=== PATIENT | female | born 1960 | race Hispanic/Latino ===

== ENCOUNTER 2022-10-25 07:41 | Observation (INO) | payer OTHER ==
[2022-10-21 12:39] VITALS: BP 141/75
[2022-10-21 12:49] LABS: BASOPHILS % (AUTO) 0.3 % (0.0-5.0); EOSINOPHILS % (AUTO) 1.4 % (0.0-8.0); HEMATOCRIT 37.3 % (36-48); LYMPHOCYTES % (AUTO) 27.6 % (21.0-51.0); MEAN CORPUSCULAR HEMOGLOBIN 30.6 pg (27.0-33.0); MEAN CORPUSCULAR HGB CONC 33.5 g/dL (32.0-36.0); MEAN CORPUSCULAR VOLUME 91.2 fL (79-99); MONOCYTES % (AUTO) 9.6 % (3.0-13.0); NEUTROPHILS % (AUTO) 60.9 % (40.0-77.0); PLATELET COUNT (AUTO) 282 K/uL (130-400); RED BLOOD CELL COUNT(AUTO) 4.09 MIL/uL (4.00-5.50); RED CELL DISTRIBUTION WIDTH 12.3 % (11.0-15.5); WHITE BLOOD COUNT (AUTO) 6.4 K/uL (4.8-10.8)
[2022-10-21 13:12] LABS: PROTHROMBIN TIME 10.9 SEC (9.6-11.6)
[2022-10-21 13:13] LABS: PARTIAL THROMBOPLASTIN TIME 28.9 SEC (26.3-35.5)
[~2022-10-25] VITALS: Ht 167.6 cm; Wt 76.7 kg
[2022-10-25] VITALS (24 sets, daily range): BP systolic 118–157; BP diastolic 62–78
[~2022-10-25 07:41] MED LIST: AEC81 PO; ALBU90AE2 IH; ATOR-2 PO; CETI10TA57 PO; DILT120C78 PO; FISH1CAP27 PO; FLUT16H NASAL; HYDR25TA PO; INVANZ 1GM+NS 50ML IVPB 50 ML IV SCH; LACTATED RINGERS 1000ML 1,000 ML IV SCH; LISI2.5T13 PO; METF-444 PO; MONT-39 PO; MVIT PO
[2022-10-25] MEDS ORDERED: 0.9%NACL 1000ML 1,000 ML IV ONE (09:03)
[2022-10-25] MEDS ORDERED: LIDOCAINE PF 100MG/5ML (2%) SYRINGE 5ML ONE (09:47)
[2022-10-25] MEDS ORDERED: PROPOFOL 10 MG/ML 20ML VIAL IV ONE (09:47)
[2022-10-25] MEDS ORDERED: ROCURONIUM 10MG/1ML SYR 10 MG/ML ML ONE (09:47)
[2022-10-25] MEDS ORDERED: GLYCOPYRROLATE 1 MG/5 ML SYRINGE ONE (09:47)
[2022-10-25] MEDS ORDERED: MIDAZOLAM HCL 1 MG/ML 2ML VIAL ONE (09:47)
[2022-10-25] MEDS ORDERED: FENTANYL CITRATE PF 50 MCG/1 ML 2ML VIAL ONE (09:47)
[2022-10-25] MEDS ORDERED: HYDROMORPHONE 1 MG INJ ONE ×2 (09:50→12:16)
[2022-10-25] MEDS ORDERED: FAMOTIDINE 20MG VIAL IV ONE (09:50)
[2022-10-25 09:53] LABS: ALBUMIN 4.1 g/dL (3.5-5.0); CREATININE 0.4 mg/dL (0.5-1.5); POTASSIUM 3.2 mmol/L (3.5-5.1); TOTAL PROTEIN, SERUM 6.9 g/dL (6.0-8.3)
[2022-10-25] MEDS ORDERED: LIDOCAINE 1%-EPI 1:100,000 20 ML VIAL IJ ONE ×2 (10:07→10:30)
[2022-10-25] MEDS ORDERED: BUPIVACAINE/PF 0.25% 30ML VIAL IJ ONE ×2 (10:08→10:30)
[2022-10-25] MEDS ORDERED: ONDANSETRON 4MG INJ ONE (11:22)
[2022-10-25] MEDS ORDERED: ONDANSETRON 4MG INJ IVP PRN ×2 (12:00→15:00)
[2022-10-25] MEDS ORDERED: INSULIN HUMULIN R 100 UNIT/ML 3ML SQ PRN (12:00)
[2022-10-25] MEDS: DOCUSATE SODIUM 100 MG CAP PO SCH (12:00)
[2022-10-25] MEDS: LACTATED RINGERS 1000ML 1,000 ML IV SCH (12:00)
[2022-10-25] MEDS ORDERED: KETOROLAC 15MG/ML VIAL (15MG/ML) ONE (12:45)
[2022-10-25] MEDS: KETOROLAC 15MG/ML VIAL (15MG/ML) IM PRN (12:54)
[2022-10-25] MEDS: GABAPENTIN 100 MG CAPSULE PO SCH ×2 (14:15→21:04)
[2022-10-25] MEDS ORDERED: DEXTROSE 50%-WATER 50 ML DISP.SYRIN IV PRN (15:00)
[2022-10-25] MEDS ORDERED: LABETALOL 20MG SYG IV PRN (15:00)
[2022-10-25] MEDS ORDERED: ACETAMINOPHEN 325 MG TAB PO PRN (15:00)
[2022-10-25] MEDS ORDERED: MORPHINE 4 MG SYG IVP PRN (15:00)
[2022-10-25] MEDS ORDERED: GLUCAGON 1MG KIT 1 MG ML IM PRN (15:00)
[2022-10-25] MEDS ORDERED: POTASSIUM CHLORIDE 10% ELIXIR 20 MEQ/15 ML UDCUP PO PRN (15:00)
[2022-10-25] MEDS ORDERED: LACTULOSE 20 GM/30 ML UDCUP PO PRN (15:00)
[2022-10-25] MEDS ORDERED: ALBUTEROL 0.083% 2.5 MG/3 ML INH IH PRN (15:00)
[2022-10-25] MEDS ORDERED: TEMAZEPAM 15 MG CAPSULE PO PRN (15:00)
[2022-10-25] MEDS ORDERED: HYDROCODONE/ACETAMINOPHEN 5/325 MG TAB PO PRN (15:00)
[2022-10-25] MEDS ORDERED: MAGNESIUM 2GM PREMIX 50ML 50 ML IV PRN (15:00)
[2022-10-25] MEDS ORDERED: HYDRALAZINE 20MG/ML VIAL IV PRN (15:00)
[2022-10-25] MEDS ORDERED: POTASSIUM CHLORIDE 20MEQ/100ML 100 ML IV PRN ×2 (15:00)
[2022-10-25] MEDS: KCL 20 MEQ ERTAB PO PRN ×2 (15:55→18:18)
[2022-10-25] MEDS ORDERED: FLUTICASONE PROPIONATE 50MCG/SPRAY 16 GM BOTTLE NS PRN (17:30)
[2022-10-25] MEDS ORDERED: ALBUTEROL INHALER 90MCG/INH IH PRN (17:30)
[2022-10-25] MEDS ORDERED: CETIRIZINE HCL 5 MG TABLET PO SCH (21:00)
[2022-10-25] MEDS: FISH OIL 1000 MG/CAP PO SCH (21:03)
[2022-10-25] MEDS: DILTIAZEM 120MG SR CAP PO SCH (21:04)
[2022-10-25] MEDS ORDERED: HEPARIN 5,000 UNIT VIAL SQ SCH (22:00)
[2022-10-26] VITALS: BP 114/74
[2022-10-26 04:00] VITALS: BP 110/66
[2022-10-26] MEDS: HYDROCODONE/ACETAMINOPHEN 5/325 MG TAB PO PRN ×2 (04:56→18:21)
[2022-10-26 05:09] LABS: BASOPHILS % (AUTO) 0.3 % (0.0-5.0); EOSINOPHILS % (AUTO) 0.1 % (0.0-8.0); HEMATOCRIT 33.5 % (36-48); LYMPHOCYTES % (AUTO) 21.2 % (21.0-51.0); MEAN CORPUSCULAR HEMOGLOBIN 30.5 pg (27.0-33.0); MEAN CORPUSCULAR HGB CONC 32.8 g/dL (32.0-36.0); MEAN CORPUSCULAR VOLUME 92.8 fL (79-99); MONOCYTES % (AUTO) 10.4 % (3.0-13.0); NEUTROPHILS % (AUTO) 67.7 % (40.0-77.0); PLATELET COUNT (AUTO) 224 K/uL (130-400); RED BLOOD CELL COUNT(AUTO) 3.61 MIL/uL (4.00-5.50); RED CELL DISTRIBUTION WIDTH 12.2 % (11.0-15.5)
[2022-10-26 05:37] LABS: CREATININE 0.5 mg/dL (0.5-1.5); POTASSIUM 3.9 mmol/L (3.5-5.1); THYROID STIMULATING HORMONE 0.23 uIU/mL (0.36-3.74)
[2022-10-26 07:16] VITALS: BP 117/70
[2022-10-26] MEDS: DOCUSATE SODIUM 100 MG CAP PO SCH (07:50)
[2022-10-26] MEDS: LACTATED RINGERS 1000ML 1,000 ML IV SCH (08:00)
[2022-10-26] MEDS ORDERED: MONTELUKAST SODIUM 10 MG TAB PO SCH (09:00)
[2022-10-26] MEDS ORDERED: METFORMIN HCL 500 MG TABLET PO SCH (09:00)
[2022-10-26] MEDS ORDERED: LISINOPRIL 2.5 MG TABLET PO SCH (09:00)
[2022-10-26] MEDS ORDERED: MULTIVITAMIN TABLET PO SCH (09:00)
[2022-10-26] MEDS ORDERED: ATORVASTATIN 40 MG TABLET PO SCH (09:00)
[2022-10-26] MEDS ORDERED: POLYETHYLENE GLYCOL 3350 17 GM POWD.PACK PO SCH (09:00)
[2022-10-26] MEDS: DILTIAZEM 120MG SR CAP PO SCH (09:18)
[2022-10-26] MEDS: FISH OIL 1000 MG/CAP PO SCH (09:19)
[2022-10-26] MEDS: KETOROLAC 15MG/ML VIAL (15MG/ML) IM PRN (09:26)
[2022-10-26 10:45] VITALS: BP 106/57
[2022-10-26] MEDS ORDERED: GABAPENTIN 100 MG CAPSULE PO SCH (14:00)
[2022-10-26] MEDS ORDERED: HEPARIN 5,000 UNIT VIAL SQ SCH (14:00)
[2022-10-26 15:35] VITALS: BP 109/74
== END 2022-10-26 18:30 | disposition home or self-care (01) ==
LOC: DAH 07:41 → DAHIP 07:42 → DAH 07:42 → EDSTATUS 09:00 → 4CH 12:55
PROVIDERS: ADMIT Internal Medicine Critical Care Medicine; ATTEND Internal Medicine Critical Care Medicine
DX: N81.6 Rectocele (principal); Z20.822 Contact with and (suspected) exposure to COVID-19; K62.3 Rectal prolapse; I10 Essential (primary) hypertension; E11.65 Type 2 diabetes mellitus with hyperglycemia; E87.6 Hypokalemia; J45.909 Unspecified asthma, uncomplicated; K59.00 Constipation, unspecified; K64.9 Unspecified hemorrhoids; N73.6 Female pelvic peritoneal adhesions (postinfective); Z79.84 Long term (current) use of oral hypoglycemic drugs; Z88.0 Allergy status to penicillin; Z79.899 Other long term (current) drug therapy; Z98.890 Other specified postprocedural states
CPT/HCPCS: 85025 ×2; 85610; 85730; 86850 ×2; 86900 ×2; 86901 ×2; 87426; 36415 ×3; 93005; 45400; 96374; 96372 ×2; 80053; 82948 ×3; 71045; 94664; 84443; 80048; A6260; G0378 ×29; A4663; J7030 ×2; A4344; A4215 ×2; J3490 ×6; J3010; J1170 ×2; J2001; J2250; J2704; J2405 ×2; J1644 ×2; J1885 ×2; J1335; G0168; A4223 ×2; A4222; A4221; A4600; A4510; 96375

== ENCOUNTER → 2023-01-24 | Outpatient (CLI) | payer OTHER ==
[~2023-01-24] MED LIST changes: -INVANZ 1GM+NS 50ML IVPB 50 ML IV SCH; -LACTATED RINGERS 1000ML 1,000 ML IV SCH
== END | disposition home or self-care (01) ==
LOC: OIH 10:45
PROVIDERS: ATTEND Internal Medicine Interventional Cardiology
DX: Z13.6 Encounter for screening for cardiovascular disorders (principal)
CPT/HCPCS: 75571